=== PATIENT | male | born 1980 | race Caucasian/White ===

== ENCOUNTER 2017-02-03 17:03 | Emergency (ER) | payer OTHER, SELFPAY | END 2017-02-03 19:06 | disposition home or self-care (01) | PROVIDERS: Emergency Provider Emergency Medicine; Family Provider Emergency Medicine; Visit Provider Emergency Medicine | DX: N20.0 Calculus of kidney (principal); Z87.442 Personal history of urinary calculi; F17.210 Nicotine dependence, cigarettes, uncomplicated; K21.9 Gastro-esophageal reflux disease without esophagitis; Z79.899 Other long term (current) drug therapy | CPT/HCPCS: 74176; 80053; 83690; 85025; 96374; 96375; 99284; J2405 ==

== ENCOUNTER 2020-07-26 17:36 | Emergency (ER) | payer OTHER, MEDICAID, SELFPAY ==
[2020-07-26 17:40] VITALS: BP 140/94; PULSE 90; RESP 19; TEMP 37; O2SAT 97; BMI 32.5
--- NOTE | 2020-07-26 17:47 | [facility].EDGENADL ---
ED Disposition Clinical Impression: Foot laceration Qualifiers: Encounter type: initial encounter Laterality: right Qualified Code(s): S91.311A - Laceration without foreign body, right foot, initial encounter Disposition: Home, Self-Care Condition on Discharge: Good Instructions: DI for Laceration Repair Additional Instructions: Keflex as prescribed. Tylenol for pain. Elevate foot for 2 days. Additional instructions for LACERATION: Clean the wound daily with soap and water. You may shower. Apply a thin film of antibiotic ointment such as neosporin or triple antibiotic after showering and apply a bandage. Keep the wound clean. Avoid submerging the wound, no swimming. See your primary care physician or return to [facility] in 10 days for suture removal. The [facility] is open 9AM to 9 PM, 7 days a week. Return if any signs of infection including increasing pain, pus drainage, swelling, redness, red streaks, or fever. Prescriptions: cephALEXin [Cephalexin 500mg Tab] 500 mg PO QID #20 tab Prescription Printed Referrals: Provider,Referral, [Primary Care Provider] - - Critical Care Critical Care Time: No Attestation: On 07/26/20, the high probability of a clinically significant, sudden or life threatening deterioration of the following system(s) required my full and direct attention, intervention and personal management. The time I documented below is in addition to time spent performing reported procedures but includes the following listed in this critical care notation. Medical Decision Making - [place] Inquiry Pt receiving controlled substance: No Vital Signs: 07/26/20 17:40 Temperature 98.6 F Temperature Source Oral Pulse Rate [Left Radial] 90 Respiratory Rate 19 Blood Pressure [Right Arm] 140/94 H Blood Pressure Mean [Right Arm] 109 Blood Pressure Source [Right Arm] Automatic Cuff Blood Pressure Position [Right Arm] Sitting 02 Sat by Pulse Oximetry 97 Oxygen Delivery Method Room Air Orders (Tests/Meds): ED MEDICATIONS Discontinued Medications Generic Name Dose Route Start Last Admin Trade Name Freq PRN Reason Stop Dose Admin Cephalexin HCl 500 mg 07/26/20 18:31 Cephalexin 500mg Capsule PO 07/26/20 18:32 ONCE ONE Protocol Tetanus/Reduced Diphtheria/Acell Pertussis 0.5 ml 07/26/20 18:31 Tet/Diphth/Pert-Adult 0.5ml Syringe IM 07/26/20 18:32 .ONCE ONE General Adult HPI - General Stated complaint: ao 07/26 1635 laceration r foot Time Seen by Provider: 07/26/20 17:50 - History of Present Illness HPI narrative: The patient was [place] a camp site putting up a tent. He had his knife stuck in the ground. He backed up and sliced to the lateral aspect of his right foot on the edge of the knife. Denies numbness or weakness. Last tetanus shot greater than 5 years ago. - Related Data Home Medications Medication Instructions Recorded Confirmed Buprenorphine HCl/Naloxone HCl 1 each SL DAILY 07/26/20 07/26/20 [Suboxone 12 mg-3 mg Sl Film] Gabapentin 300 mg PO BID 07/26/20 07/26/20 Omeprazole [Omeprazole 40mg 80 mg PO DAILY 07/26/20 07/26/20 Capsule] buPROPion HCL [Wellbutrin SR 150mg 150 mg PO BID 07/26/20 07/26/20 Tablet] Previous Rx's Medication Instructions Recorded cephALEXin [Cephalexin 500mg Tab] 500 mg PO QID #20 tab 07/26/20 Allergies Allergy/AdvReac Type Severity Reaction Status Date / Time NSAIDS (Non-Steroidal AdvReac Gastrointestinal Verified 12/31/18 22:19 Anti-Inflamma Upset [facility] History - Hepatitis A Screen Attestation statement:: This patient has been screened for Hepatitis A risk factors. I have reviewed the patient's past medical history: Yes Medical History: Denies:: Cancer, Diabetes Mellitus Type 1, Diabetes Mellitus Type 2, Internal Pacemaker, MRSA Laterality Cases: Left: Arthroscopy Knee Other Surgeries: No: Pacemaker Amputation: No Fractu
--- NOTE | 2020-07-26 18:58 | PC.NURSE ---
DSDING APPLIED TO FOOT.
[2020-07-26 18:59] VITALS: BP 112/74; PULSE 74; RESP 16; TEMP 36.6; O2SAT 98
== END 2020-07-26 19:00 | disposition home or self-care (01) ==
PROVIDERS: Emergency Provider Emergency Medicine
DX: S91.311A Laceration without foreign body, right foot, initial encounter (principal); W26.0XXA Contact with knife, initial encounter; Y92.89 Other specified places as the place of occurrence of the external cause; F17.210 Nicotine dependence, cigarettes, uncomplicated; Z23 Encounter for immunization
CPT/HCPCS: 12002; 90471; 90715; 99282